=== PATIENT | female | born 1960 | race Caucasian/White ===

== ENCOUNTER 2016-10-16 17:49 | Emergency (ER) | payer OTHER ==
[~2016-10-16] VITALS: Ht 157.5 cm; Wt 61.5 kg
[2016-10-16 18:10] VITALS: BP 132/78; PULSE 68; RESP 17; TEMP 98.8; O2SAT 96
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
[2016-10-16] MEDS ORDERED: TETANUS/DIPHTHERIA TOXOID ADULT 0.5 ML VIAL IM ONE (19:15)
[2016-10-16] MEDS ORDERED: LIDOCAINE 1%/EPINEPHrine 1:100,000 SOLN 20 ML VIAL INFIL ONE (19:15)
[2016-10-16] MEDS ORDERED: KETOROLAC TROMETHAMINE 30 MG/ML (IVP) VIAL IVP ONE (19:15)
[2016-10-16] MEDS ORDERED: IBUP800T23 PO (19:18)
[2016-10-16] MEDS ORDERED: CEPH-460 PO (19:18)
[2016-10-16] MEDS ORDERED: BACT800T5 PO (19:18)
--- NOTE | 2016-10-16 19:40 | RADHPO ---
EXAM DATE/TIME: 10/16/2016 19:13 [facility] COMPARISON: No previous studies available for comparison. INDICATIONS : Left hand laceration. Patient cut the palm of her hand with a knife. MEDICAL HISTORY : None. SURGICAL HISTORY : None. ENCOUNTER: Initial ACUITY: 1 day PAIN SCORE: 7/10 LOCATION: Left hand. FINDINGS: Three view examination of the left hand demonstrates no soft tissue swelling, dislocation, or fractur e. The carpal bones appear intact. The interphalangeal and metacarpophalangeal joints are intact. Bony mineralization is normal. CONCLUSION: 1. No acute bony findings. No radiopaque foreign body. Girish Lake MD on October 16, 2016 at 19:38 Board Certified Radiologist. This report was verified electronically.
== END 2016-10-16 20:45 | disposition home or self-care (01) ==
LOC: PHED 17:49 → PHEFT 20:45
DX: S61.412A Laceration without foreign body of left hand, initial encounter (principal); W26.0XXA Contact with knife, initial encounter; Y93.G1 Activity, food preparation and clean up; Z23 Encounter for immunization
CPT/HCPCS: 12001; 73130; 90471; 90714; 96374; 96375; 99283; J0690; J1885